=== PATIENT | male | born 1980 | race Hispanic/Latino ===

== ENCOUNTER 2019-10-07 09:17 | Emergency (ER) | payer SELFPAY ==
[2019-10-07 09:51] LABS: Absolute Lymphocytes (CBC) 2.6 K/uL (0.7-4.9); Basophils % 0.6 % (0-1.3); Hematocrit 38.8 % (39.6-49.0); Lymphocytes % 24.4 % (15.3-44.8); MPV 9.4 fL (7.6-11.3); RBC Red Blood Cell Count 4.68 M/uL (4.33-5.43)
--- NOTE | 2019-10-07 10:24 | RAD REPORT ---
EXAM DESCRIPTION: CT - Head C Spine Cap W Mega - 10/07/2019 10:01 am CLINICAL HISTORY: fall > 10 ft, fall from roof COMPARISON: No comparisons TECHNIQUE: Axial [address] head images were obtained. Axial [address] cervical spine images were obtaine d with sagittal and coronal reconstruction images reviewed. During dynamic enhancement of 100mL non-i onic contrast, axial 5 mm images of the chest, abdomen and pelvis were obtained. Biphasic technique p erformed of the abdomen and pelvis. All CT scans are performed using dose optimization technique as appropriate and may include automated exposure control or mA/KV adjustment according to patient size. FINDINGS: No intracranial hemorrhage, mass or edema. No midline shift or abnormal fluid collection. Mastoid air cells are clear. Middle ears are clear. Orbits, sinuses and facial bones are separately detailed. No skull fracture. Ventricles are normal. CT cervical spine imaging shows normal height. Normal alignment of the vertebrae. No disc space narro wing. No paraspinal mass or hematoma seen. Central canal detail is inherently limited. Concerns for t raumatic disc herniation or traumatic cord injury can be further addressed with MR imaging. CT chest shows no pneumothorax, pulmonary contusion or pleural fluid collection. No mediastinal hemat viraj and the aorta and pulmonary arteries are unremarkable. No chest will mass or abnormal axillary fi nding. No displaced rib fracture or other significant bony finding. Left shoulder joint and left sca pula are only partially imaged. CT abdomen and pelvis show no injury to solid abdominal viscera. Gallbladder and biliary tree are unr emarkable. No bowel injury or significant finding. No free air, free fluid or abnormal stranding. No urinary bladder abnormality. Contusion changes are seen in the fatty tissues lateral to the greater t rochanter. There is a small amount of hematoma or edema changes in the lateral aspect of the left glu teus mary kate muscle. No vertebral body compression fracture. Degenerative disc disease present at L5-S1 with degenerative anterior endplate spurring. No significant vascular finding. IMPRESSION: No significant CT Head finding. No significant CT Cervical Spine finding. No significant CT Chest finding. Left scapula and left shoulder joint are only partially imaged. No significant CT Abdomen and Pelvis finding. Patient has contusion and edema changes in the fatty ti ssues lateral to the greater trochanter left hip as well as mild edema or hematoma changes within the lateral aspect of the left gluteus mary kate muscle.
--- NOTE | 2019-10-07 10:27 | RAD REPORT ---
EXAM DESCRIPTION: CT - Facial Bones W/ Mpr - 10/07/2019 10:01 am CLINICAL HISTORY: Fall from roof, facial trauma COMPARISON: None. TECHNIQUE: Axial 2 millimeter thick images of the facial bones were obtained with sagittal and coron al reconstruction imaging. All CT scans are performed using dose optimization technique as appropriate and may include automated exposure control or mA/KV adjustment according to patient size. FINDINGS: No fracture of the mandible. Condyles are normally positioned. No skullbase fracture. Mast oid air cells and middle ears are clear. Multiple small nasal bone fractures are present without measurable displacement. Left deviation of th e nasal septum is present. An acute nasal septum fracture is not confirmed. No other facial bone frac tures are identified. Minimal mucosal thickening of the paranasal sinuses present. There are no air-f luid levels. No globe or orbital content abnormality. IMPRESSION: Multiple small nondisplaced nasal bone fractures are present. Left deviation of the nasal septum without nasal septum fracture identifiable. No acute paranasal sinus finding. No globe or orbital injury identified.
--- NOTE | 2019-10-07 10:48 | RAD REPORT ---
EXAM DESCRIPTION: RAD - Elbow Left 3 View - 10/07/2019 10:12 am CLINICAL HISTORY: PAIN, fall from roof COMPARISON: None. FINDINGS: No fracture is identified and no elevated posterior fat pad. There is no dislocation or pe riosteal reaction noted. No foreign body or other soft tissue abnormality. IMPRESSION: Negative left elbow examination.
[2019-10-07 10:52] LABS: BUN Blood Urea Nitrogen 17 mg/dL (7-18); Bicarbonate 24 mmol/L (21-32); Glucose Level 295 mg/dL (74-106); Potassium 4.2 mmol/L (3.5-5.1); Sodium Level 135 mmol/L (136-145)
[2019-10-07 11:02] LABS: Blood Morphology Comment NOT SEEN (NOT SEEN); Platelet Estimate ADEQ
[2019-10-07] MEDS ORDERED: LIDOCAINE 1% MPF 5 ML VIAL ONE (11:18)
[2019-10-07] MEDS ORDERED: MORPHINE 4 MG/ML SYR ONE (11:19)
[2019-10-07] MEDS ORDERED: ONDANSETRON 4 MG/2 ML VIAL ONE (11:19)
--- NOTE | 2019-10-07 12:00 | EDPHYS ---
Physician Documentation [facility] Name: Isaias Ramos Age: 38 yrs Sex: Male : 1980 Arrival Date: 10/07/2019 Time: 09:22 Bed 7 Private MD: ED Physician Nicolás Neri HPI: 10/06 10:16 This 38 yrs old Male presents to ER via EMS with complaints of Fall Injury. jr8 10:16 Details of fall: The patient fell from a height, off a roof, approximately 10 feet, in jr8 a freefall-type manner. Onset: The symptoms/episode began/occurred acutely, just prior to arrival, today. Associated injuries: The patient sustained injury to the head, left arm, left leg. Severity of symptoms: At their worst the symptoms were moderate, in the emergency department the symptoms are unchanged. The patient has not experienced similar symptoms in the past. The patient has not recently seen a physician. 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 Denies LOC. Historical: - Allergies: 09:28 No Known Allergies; hb - Immunization history:: Adult Immunizations up to date. - Social history:: Smoking status: Patient denies any tobacco usage or history of. - Immunization history: Last tetanus immunization: < 5 years ago. ROS: 10:16 Eyes: Negative for injury, pain, redness, and discharge, Neck: Negative for injury, jr8 pain, and swelling, Cardiovascular: Negative for chest pain, palpitations, and edema, Respiratory: Negative for shortness of breath, cough, wheezing, and pleuritic chest pain, Abdomen/GI: Negative for abdominal pain, nausea, vomiting, diarrhea, and constipation, Back: Negative for injury and pain. 10:16 Neuro: Negative for headache, weakness, numbness, tingling, and seizure. 10:16 ENT: Positive for dental pain, injury or acute deformity, laceration. 10:16 MS/extremity: Positive for decreased range of motion, pain, swelling, tenderness, of the left elbow, pain left hip. 10:16 Skin: Positive for abrasion(s), of the face. Exam: 10:16 Eyes: Pupils equal round and reactive to light, extra-ocular motions intact. Lids and jr8 lashes normal. Conjunctiva and sclera are non-icteric and not injected. Cornea within normal limits. Periorbital areas with no swelling, redness, or edema. Neck: Trachea midline, no thyromegaly or masses palpated, and no cervical lymphadenopathy. Supple, full range of motion without nuchal rigidity, or vertebral point tenderness. No Meningismus. Chest/axilla: Normal chest wall appearance and motion. Nontender with no deformity. No lesions are appreciated. Cardiovascular: Regular rate and rhythm with a normal S1 and S2. No gallops, murmurs, or rubs. Normal PMI, no JVD. No pulse deficits. Respiratory: Lungs have equal breath sounds bilaterally, clear to auscultation and percussion. No rales, rhonchi or wheezes noted. No increased work of breathing, no retractions or nasal flaring. Abdomen/GI: Soft, non-tender, with normal bowel sounds. No distension or tympany. No guarding or rebound. No evidence of tenderness throughout. Back: No spinal tenderness. No costovertebral tenderness. Full range of motion. Skin: Warm, dry with normal turgor. Normal color with no rashes, no lesions, and no evidence of cellulitis. Neuro: Awake and alert, GCS 15, oriented to person, place, time, and situation. Cranial nerves II-XII grossly intact. Motor strength 5/5 in all extremities. Sensory grossly intact. Cerebellar exam normal. Normal gait. 10:16 Head/face: Noted is abrasion(s), that are moderate, of the forehead, nose, left cheek and chin. 10:16 ENT: External ear(s): are unremarkable, Ear canal(s): are normal, clear, TM's: hemotympanum, is not appreciated, Nose: External nose: abrasion is noted, contusion is noted, swelling is noted, Nasal septum: is midline, Nasal mucosa: moist, Turbinates: are normal, Mouth: Lips: lacerated, approximately 2.5 cm(s), inner lower lip, Oral mucosa: pink and intact, moist, Gums: on the lower left lateral incisor, lower left central incisor, lower right central incisor and lower right lateral incisor, Tongue: is normal, Posterior pharynx: Airway: patent, Tonsils: are normal in appearance, Uvula: midline, swelling, is not appreciated, Dental exam: avulsion, partial, specifically the upper right central incisor (#8), upper left central incisor (#9), upper left lateral incisor (#10), lower left central incisor (#24), lower right central incisor (#25) and lower right lateral incisor (#26), pain, that is mild, specifically in the lower left lateral incisor (#23), lower left central incisor (#24), lower right central incisor (#25) and lower right lateral incisor (#26). 10:16 Musculoskeletal/extremity: Extremities: grossly normal except: noted in the left arm: Patient has pain, decreased ROM, swelling, and tenderness to left medial elbow, Circulation is intact in all extremities. Pulses: noted to be 2+ in the right radial artery, right dorsalis pedis artery, left radial artery and left dorsalis pedis artery, Sensation intact. Patient has mild tenderness to left lateral hip. Vital Signs: 09:26 BP 144 / 84; Pulse 88; Resp 16; Temp 98.2; Pulse Ox 100% ; Weight 120.2 kg; Height 5 hb ft. 10 in. (177.80 cm); Pain 10/10; 10:15 BP 132 / 78; Pulse 86; Resp 15; Pulse Ox 99% on R/A; Pain 8/10; hb 11:15 BP 126 / 76; Pulse 84; Resp 15; Pulse Ox 99% on R/A; Pain 8/10; hb 12:15 BP 122 / 72; Pulse 84; Resp 16; Temp 97.9; Pulse Ox 99% on R/A; ph 09:26 Body Mass Index 38.02 (120.20 kg, 177.80 cm) hb Fairfield Coma Score: 09:25 Eye Response: spontaneous(4). Verbal Response: oriented(5). Motor Response: obeys hb commands(6). Total: 15. 12:15 Eye Response: spontaneous(4). Verbal Response: oriented(5). Motor Response: obeys ph commands(6). Total: 15. Trauma Score (Adult): 09:25 Eye Response: spontaneous(1); Verbal Response: oriented(1); Motor Response: obeys hb commands(2); Systolic BP: > 89 mm Hg(4); Respiratory Rate: 10 to 29 per min(4); Mack Score: 15; Trauma Score: 12 10:15 Eye Response: spontaneous(1); Verbal Response: oriented(1); Motor Response: obeys hb commands(2); Systolic BP: > 89 mm Hg(4); Respiratory Rate: 10 to 29 per min(4); Mack Score: 15; Trauma Score: 12 11:15 Eye Response: spontaneous(1); Verbal Response: oriented(1); Motor Response: obeys hb commands(2); Systolic BP: > 89 mm Hg(4); Respiratory Rate: 10 to 29 per min(4); Mack Score: 15; Trauma Score: 12 12:15 Eye Response: spontaneous(1); Verbal Response: oriented(1); Motor Response: obeys ph commands(2); Systolic BP: > 89 mm Hg(4); Respiratory Rate: 10 to 29 per min(4); [place] Score: 15; Trauma Score: 12 Laceration: 11:43 Wound Repair of 3cm ( 1.2in ) subcutaneous laceration to inner lower lip. Distal jr8 neuro/vascular/tendon intact. Anesthesia: Local anesthetic administered with 1.5 mls of 1% lidocaine. Wound prep: Simple cleansing, Wound irrigation with saline, Wound explored extensively. Mucosal surface closed with 7 5-0 chromic using interrupted sutures and sterile technique. Patient tolerated well. MDM: 09:25 Patient medically screened. jr8 11:43 Data reviewed: vital signs, nurses notes, lab test result(s), radiologic studies, CT jr8 scan, plain films. Data interpreted: Pulse oximetry: on room air is 99 %. Interpretation: normal. Counseling: I had a detailed discussion with the patient and/or guardian regarding: the historical points, exam findings, and any diagnostic results supporting the discharge/admit diagnosis, lab results, radiology results, the need for outpatient follow up, a dentist, a family practitioner, to return to the emergency department if symptoms worsen or persist or if there are any questions or concerns that arise at home. Response to treatment: the patient's symptoms have markedly improved after treatment. 11:44 ED course: Waiting on Dr. Ulloa to call back to see if patient can see him for partial jr8 avulsion of teeth . 11:57 ED course: Dr. Ulloa will see patient directly upon discharge from hospital. Patient jr8 is good with this. 10/06 09:26 Order name: Basic Metabolic Panel; Complete Time: 11:04 8 10/06 09:26 Order name: CBC with Diff; Complete Time: 11:04 8 10/06 09:26 Order name: Creatinine for Radiology; Complete Time: 11:04 8 10/06 09:26 Order name: Type And Screen; Complete Time: 10:43 8 10/06 11:02 Order name: Manual Differential; Complete Time: 11:04 EDMS 10/06 11:35 Order name: ABO/RH no charge; Complete Time: 11:45 EDMS 10/06 09:26 Order name: CT Traumagram (Head C Spine CAP W Con); Complete Time: 10:31 10/06 09:26 Order name: Labs collected and sent; Complete Time: 11:30 10/06 09:26 Order name: Facial Bones W/O Con CT; Complete Time: 10:38 10/06 09:26 Order name: XRAY Elbow LEFT 3 view; Complete Time: 11:04 10/06 12:14 Order name: Glucose, Ancillary Testing; Complete Time: 15:59 EDMS 10/06 09:26 Order name: Cervical Immobilization; Complete Time: 11:30 10/06 09:27 Order name: IV; Complete Time: 11:30 10/06 09:58 Order name: Labs - recollect needed; Complete Time: 11:30 iw Administered Medications: 11:20 Drug: morphine 4 mg Route: IVP; Site: right hand; hb 11:45 Follow up: Response: No adverse reaction ph 11:20 Drug: Zofran (Ondansetron) 4 mg Route: IVP; Site: right hand; hb 11:45 Follow up: Response: No adverse reaction ph 11:20 Drug: Lidocaine (1 %) 5 mg Route: Infiltration; hb 11:45 Follow up: Response: No adverse reaction ph Disposition: 14:12 Co-signature as Attending Physician, Nicolás Neri MD I agree with the assessment and kdr plan of care. Disposition: 10/07/19 11:58 Discharged to Home. Impression: Contusion of left hip, Contusion of left elbow, Fracture of nasal bones, Avulsion of teeth, Laceration of lip and oral cavity without foreign body. - Condition is Stable. - Discharge Instructions: Contusion, Nasal Fracture, Stitches, [place], or Adhesive Wound Closure, Elbow Contusion. - Prescriptions for Keflex 500 mg Oral Capsule - take 1 capsule by ORAL route every 8 hours for 7 days; 21 capsule. Ibuprofen 800 mg Oral Tablet - take 1 tablet by ORAL route every 12 hours As needed take with food; 20 tablet. - Medication Reconciliation Form, Thank You Letter, Antibiotic Education, Prescription Opioid Use form. - Follow up: Archie Ulloa DDS; When: Upon discharge from the Emergency Department; Reason: Recheck today's complaints, Continuance of care, Re-evaluation by your physician. - Problem is new. - Symptoms have improved. Signatures: Dispatcher [employer] EDMS Nicolás Neri MD MD [facility] Adamaris Barnett RN RN Santiago Crowley PA PA jr8 Tamiko Neri RN RN Camilla Gaston RN ph Corrections: (The following items were deleted from the chart) 11:42 10:16 ENT: External ear(s): are unremarkable, Ear canal(s): are normal, clear, TM's: jr8 hemotympanum, is not appreciated, Nose: External nose: abrasion is noted, contusion is noted, swelling is noted, Nasal septum: is midline, Nasal mucosa: moist, Turbinates: are normal, Mouth: Lips: lacerated, approximately 2.5 cm(s), inner lower lip, Oral mucosa: pink and intact, moist, Gums: on the lower left lateral incisor, lower left central incisor, lower right central incisor and lower right lateral incisor, Tongue: is normal, Posterior pharynx: Airway: patent, Tonsils: are normal in appearance, Uvula: midline, swelling, is not appreciated, Dental exam: avulsion, partial, specifically the lower left central incisor (#24) and lower right central incisor (#25), pain, that is mild, specifically in the lower left lateral incisor (#23), lower left central incisor (#24), lower right central incisor (#25) and lower right lateral incisor (#26), jr8 11:59 11:58 10/07/2019 11:58 Discharged to Home. Impression: Contusion of left hip; Contusion jr8 of left elbow; Fracture of nasal bones; Avulsion of teeth. Condition is Stable. Forms are Medication Reconciliation Form, Thank You Letter, Antibiotic Education, Prescription Opioid Use. Follow up: Arcihe Ulloa; When: Upon discharge from the Emergency Department; Reason: Recheck today's complaints, Continuance of care, Re-evaluation by your physician. Problem is new. Symptoms have improved. jr8 12:25 11:59 10/07/2019 11:58 Discharged to Home. Impression: Contusion of left hip; Contusion hb of left elbow; Fracture of nasal bones; Avulsion of teeth; Laceration of lip and oral cavity without foreign body. Condition is Stable. Forms are Medication Reconciliation Form, Thank You Letter, Antibiotic Education, Prescription Opioid Use. Follow up: Archie Ulloa; When: Upon discharge from the Emergency Department; Reason: Recheck today's complaints, Continuance of care, Re-evaluation by your physician. Problem is new. Symptoms have improved. jr8
--- NOTE | 2019-10-07 12:00 | ER ---
Nurse's Notes [facility] Name: Isaias Ramos Age: 38 yrs Sex: Male : 1980 Arrival Date: 10/07/2019 Time: 09:22 Bed 7 Private MD: Diagnosis: Contusion of left hip;Contusion of left elbow;Fracture of nasal bones;Avulsion of teeth;Laceration of lip and oral cavity without foreign body Presentation: 10/06 09:23 Chief complaint: EMS states: Fell from roof, landed prone, denies LOC, c/o left arm and hb left hip pain 10/10. Abrasion to nose, laceration to inner lower lip noted upon arrival. 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 Care prior to arrival:. Care prior to arrival: IV initiated. 20 GA, in the right hand. Mechanism of Injury: Fall from roof. Trauma event details: Injury occurred in the [facility], Injury occurred: at home. Injury occurred: October 07, 2019. 09:23 Acuity: LUCILA 2 hb 09:23 Method Of Arrival: EMS hb 09:26 Coronavirus screen: Proceed with normal triage. Ebola Screen: No symptoms or risks hb identified at this time. Initial Sepsis Screen: Does the patient meet any 2 criteria? No. Patient's initial sepsis screen is negative. Does the patient have a suspected source of infection? No. Patient's initial sepsis screen is negative. Risk Assessment: Do you want to hurt yourself or someone else? Patient reports no desire to harm self or others. Onset of symptoms was October 07, 2019. Trauma Activation: Alert Physician: ED Physician; Name: ; Notified At: ; Arrived At: Physician: General Surgeon; Name: ; Notified At: ; Arrived At: Physician: Radiology; Name: ; Notified At: ; Arrived At: Physician: Respiratory; Name: ; Notified At: ; Arrived At: Physician: Lab; Name: ; Notified At: ; Arrived At: Historical: - Allergies: 09:28 No Known Allergies; hb - Immunization history:: Adult Immunizations up to date. - Social history:: Smoking status: Patient denies any tobacco usage or history of. - Immunization history: Last tetanus immunization: < 5 years ago. Screenin:15 Abuse screen: Denies threats or abuse. Denies injuries from another. Tuberculosis hb screening: No symptoms or risk factors identified. 11:36 Nutritional screening: No deficits noted. Fall Risk None identified. hb Primary Survey: 09:25 NO uncontrolled hemorrhage observed. A: Airway: patent, No supplemental oxygen in use hb on arrival. Breathing/Chest: Respiratory pattern: regular, Respiratory effort: spontaneous, unlabored, Chest inspection: symmetrical rise and fall of the chest. Circulation: Skin color: pink, Skin temperature: warm, dry. Disability Alert. Exposure/Environment: All clothing and personal items were removed. There is no evidence of uncontrolled external bleeding. Obvious injury(ies) are noted at this time: laceration to inner lower lip, abrasion on bridge of nose, pt reports left arm and left hip pain. 10:15 Reassessment Airway Airway Patent Oxygen No O2 Breathing/Chest Respiratory pattern hb Regular Respiratory effort Spontaneous Unlabored Chest inspection Symmetrical Circulation Color [place] Disability Alert. 11:15 Reassessment Airway Airway Patent Oxygen No O2 Breathing/Chest Respiratory pattern hb Regular Respiratory effort Spontaneous Unlabored Chest inspection Symmetrical Circulation Color [place] Disability Alert. Secondary Survey: 09:28 HEENT: Face Other abrasions on bridge of nose, inner lip laceration. Gastrointestinal: hb No deficits noted. : No deficits noted. No signs and/or symptoms were reported regarding the genitourinary system. Musculoskeletal: Reports left inner arm pain, left hip pain. Assessment: 09:35 General: Appears in no apparent distress. uncomfortable, Behavior is calm, cooperative. hb Pain: Pain currently is 8 out of 10 on a pain scale. Neuro: Level of Consciousness is awake, alert, obeys commands, Oriented to person, place, time, situation. 09:35 EENT: No signs and/or symptoms were reported regarding the EENT system. Cardiovascular: hb Heart tones S1 S2 present Capillary refill < 3 seconds Patient's skin is warm and dry. Respiratory: Airway is patent Respiratory effort is even, unlabored, Respiratory pattern is regular, symmetrical, Breath sounds are clear bilaterally. GI: No deficits noted. No signs and/or symptoms were reported involving the gastrointestinal system. : No deficits noted. No signs and/or symptoms were reported regarding the genitourinary system. Derm: Skin is pink, warm \T\ dry. Musculoskeletal: Reports left arm and left hip pain. Injury Description: inner lip laceration, 2 loose lower incisors, left arm pain. left hip and left buttock pain. 10:30 Reassessment: Patient appears in no apparent distress at this time. Patient and/or ph family updated on plan of care and expected duration. Pain level reassessed. Patient is alert, oriented x 3, equal unlabored respirations, skin warm/dry/pink. 12:07 Reassessment: Patient appears in no apparent distress at this time. Patient and/or ph family updated on plan of care and expected duration. Pain level reassessed. Patient is alert, oriented x 3, equal unlabored respirations, skin warm/dry/pink. Pt d/c from ED, instructed to immediately follow up w/ dentist, provided w/ address. Vital Signs: 09:26 BP 144 / 84; Pulse 88; Resp 16; Temp 98.2; Pulse Ox 100% ; Weight 120.2 kg; Height 5 hb ft. 10 in. (177.80 cm); Pain 10/10; 10:15 BP 132 / 78; Pulse 86; Resp 15; Pulse Ox 99% on R/A; Pain 8/10; hb 11:15 BP 126 / 76; Pulse 84; Resp 15; Pulse Ox 99% on R/A; Pain 8/10; hb 12:15 BP 122 / 72; Pulse 84; Resp 16; Temp 97.9; Pulse Ox 99% on R/A; ph 09:26 Body Mass Index 38.02 (120.20 kg, 177.80 cm) hb Mack Coma Score: 09:25 Eye Response: spontaneous(4). Verbal Response: oriented(5). Motor Response: obeys hb commands(6). Total: 15. 12:15 Eye Response: spontaneous(4). Verbal Response: oriented(5). Motor Response: obeys ph commands(6). Total: 15. Trauma Score (Adult): 09:25 Eye Response: spontaneous(1); Verbal Response: oriented(1); Motor Response: obeys hb commands(2); Systolic BP: > 89 mm Hg(4); Respiratory Rate: 10 to 29 per min(4); [place] Score: 15; Trauma Score: 12 10:15 Eye Response: spontaneous(1); Verbal Response: oriented(1); Motor Response: obeys hb commands(2); Systolic BP: > 89 mm Hg(4); Respiratory Rate: 10 to 29 per min(4); Mack Score: 15; Trauma Score: 12 11:15 Eye Response: spontaneous(1); Verbal Response: oriented(1); Motor Response: obeys hb commands(2); Systolic BP: > 89 mm Hg(4); Respiratory Rate: 10 to 29 per min(4); Mack Score: 15; Trauma Score: 12 12:15 Eye Response: spontaneous(1); Verbal Response: oriented(1); Motor Response: obeys ph commands(2); Systolic BP: > 89 mm Hg(4); Respiratory Rate: 10 to 29 per min(4); [place] Score: 15; Trauma Score: 12 ED Course: 09:22 Patient arrived in ED. hb 09:25 Santiago Crowley PA is PHCP. jr8 09:25 Nicolás Neri MD is Attending Physician. jr8 09:26 Triage completed. hb 09:27 Arm band placed on. hb 09:30 Patient has correct armband on for positive identification. Placed in gown. Bed in low hb position. Call light in reach. 09:30 Patient maintains SpO2 saturation greater than 95% on room air. Thermoregulation: warm hb blanket given to patient. 10:02 CT Traumagram (Head C Spine CAP W Con) In Process Unspecified. EDMS 10:02 Facial Bones W/O Con CT In Process Unspecified. EDMS 10:14 XRAY Elbow LEFT 3 view In Process Unspecified. EDMS 10:22 Camilla Gaston, RN is Primary Nurse. ph 11:40 Assist provider with laceration repair on lower lip that was 2.5 cm. or less using ph sutures. Set up tray. Performed by Santiago CONRAD Patient tolerated well. 11:57 Archie Ulloa DDS is Referral Physician. jr8 12:15 IV discontinued, intact, bleeding controlled, No redness/swelling at site. Pressure ph dressing applied. Administered Medications: 11:20 Drug: morphine 4 mg Route: IVP; Site: right hand; hb 11:45 Follow up: Response: No adverse reaction ph 11:20 Drug: Zofran (Ondansetron) 4 mg Route: IVP; Site: right hand; hb 11:45 Follow up: Response: No adverse reaction ph 11:20 Drug: Lidocaine (1 %) 5 mg Route: Infiltration; hb 11:45 Follow up: Response: No adverse reaction ph Intake: 10:15 PO: 0ml; Total: 0ml. hb 12:15 PO: 0ml; Total: 0ml. ph Output: 10:15 Urine: 0ml; Total: 0ml. hb 12:15 Urine: 0ml; Total: 0ml. ph Outcome: 11:58 Discharge ordered by MD. mejia 12:25 Patient left the ED. hb 12:25 Discharged to pt instructed to go immediately to dental office to address loose teeth ph 12:25 Condition: good 12:25 Discharge instructions given to patient, Instructed on discharge instructions, follow up and referral plans. medication usage, Demonstrated understanding of instructions, follow-up care, medications, Prescriptions given X 2. 12:25 Patient's length of stay was not longer than 2 hours. ph Signatures: Dispatcher [employer] EDMS Santiago Crowley PA PA jrCamilla Jimenez RN RN Tamiko Neri, BECKIE RN
[2019-10-07 12:45] VITALS: TEMP 98.2
[2019-10-07 12:46] VITALS: O2SAT 99
[2019-10-07 12:47] VITALS: BP 126/76
== END 2019-10-07 12:25 | disposition home or self-care (01) ==
LOC: ER 09:17
PROC: 0CQ1XZZ Repair Lower Lip, External Approach (ICD-10-PCS; principal; 2019-10-07)
DX: S02.2XXA Fracture of nasal bones, initial encounter for closed fracture (principal); S03.2XXA Dislocation of tooth, initial encounter; S70.02XA Contusion of left hip, initial encounter; S50.02XA Contusion of left elbow, initial encounter; W13.2XXA Fall from, out of or through roof, initial encounter; Y93.89 Activity, other specified; Y92.9 Unspecified place or not applicable
CPT/HCPCS: 36415; 70450; 70486; 71260; 72125; 74177; 76377; 80048; 82947; 85025; 86850; 86900; 86901; 96374; 96375; 99284; J2405; Q9967